=== PATIENT | male | born 1970 | race Hispanic/Latino ===

== ENCOUNTER 2017-07-26 11:00 | Inpatient (IN) | payer SELFPAY ==
--- NOTE | 2017-07-26 12:20 | RAD ---
4 VIEWS LEFT KNEE: Date: 07/26/17 HISTORY: Left knee pain and redness for 4 days. FINDINGS: There is no evidence of a fracture, dislocation, or other osseous abnormality. There is mild subcutan eous soft tissue swelling seen anterior to the knee. IMPRESSION: Subcutaneous soft tissue swelling without evidence of an acute osseous abnormality. POS: [facility]
[2017-07-26] MEDS ORDERED: cefTRIAXone\\ROCEPHIN 2 GM in Sodium Chloride 0.9% 100 ML IVPB ONE (12:30)
[2017-07-26 12:42] LABS: Band 10 % (5-11); Hematocrit 43.2 % (42.0-52.0); Macrocytosis SLIGHT = 6-15 cells (100X) (0-5/hpf); Mean Platelet Volume 7.2 fL (7.4-10.4); Neutrophil 56 % (42-75); Red Blood Cell (RBC) Count 3.89 mill/uL (4.70-6.10); White Blood Cell (WBC) Count 5.2 thou/uL (4.8-10.8)
[2017-07-26] MEDS ORDERED: Vancomycin HCl 1.5 GM in Sodium Chloride 0.9% 250 ML 300 ML IVPB ONE (12:45)
[2017-07-26 12:51] LABS: ALT (SGPT) 48 U/L (8-55); AST (SGOT) 89 U/L (5-34); Alkaline Phosphatase 240 U/L (40-150); Anion Gap 13 mmol/L (10-20); BUN (Urea Nitrogen) 4 mg/dL (8.9-20.6); Bilirubin, Total 4.7 mg/dL (0.2-1.2); Calc. Creatinine Clearance 0 mL/min (70-130); Calcium 8.5 mg/dL (7.8-10.44); Carbon Dioxide 25 mmol/L (22-29); Chloride 98 mmol/L (98-107); Estimated GFR-MDRD Greater than 90; Globulin 4.2 g/dL (2.4-3.5); Protein, Total 7.2 g/dL (6.0-8.3)
[2017-07-26] MEDS ORDERED: Dextrose 50% Abboject 50 ML SYRINGE SLOW IVP PRN (16:03)
[2017-07-26] MEDS ORDERED: Mag-Al 1200 mg/1200 mg/30 ML UDCUP PO PRN (16:03)
[2017-07-26] MEDS ORDERED: Loratadine 10 MG TAB PO PRN (16:03)
[2017-07-26] MEDS ORDERED: Ondansetron HCl/PF 4 MG/2 ML Vial IVP PRN ×2 (16:03)
[2017-07-26] MEDS ORDERED: Chloraseptic Spray 180 ml Bottle PO PRN (16:03)
[2017-07-26] MEDS ORDERED: HumaLOG 300 UNITS/3 ML VIAL SC PRN ×2 (16:03)
[2017-07-26] MEDS ORDERED: Eucerin (Mineral Oil/Petrolatum,White) 30 gm Jar TOP PRN (16:03)
[2017-07-26] MEDS ORDERED: Ondansetron ODT 4 MG TAB PO PRN (16:03)
[2017-07-26] MEDS ORDERED: Loperamide HCl 2 MG CAP PO PRN (16:03)
[2017-07-26] MEDS ORDERED: Ondansetron ODT 4 MG TAB SL PRN (16:03)
[2017-07-26] MEDS ORDERED: Senokot 8.6 MG TAB PO PRN (16:03)
[2017-07-26] MEDS ORDERED: hydrALAZINE 20 MG/ML VIAL SLOW IVP PRN (16:03)
[2017-07-26] MEDS ORDERED: Diabetic Tussin 200 MG/10 ML UDCUP PO PRN (16:03)
[2017-07-26] MEDS ORDERED: Acetaminophen 325 MG TAB PO PRN (16:03)
[2017-07-26] MEDS ORDERED: Dextrose 5% in Water 1,000 ML IV PRN (16:03)
[2017-07-26] MEDS ORDERED: Milk Of Magnesia 30 ML UDCUP PO PRN (16:03)
[2017-07-26] MEDS ORDERED: Sodium Chloride 0.65% Nasal 44 ML BOT EA NARE PRN (16:03)
[2017-07-26] MEDS ORDERED: Zolpidem Tartrate 5 MG TAB PO PRN (16:03)
[2017-07-26] MEDS ORDERED: Morphine PF 1 MG/ML SYR IVP PRN (16:19)
--- NOTE | 2017-07-26 16:49 | HP ---
PRIMARY CARE PHYSICIAN: [facility] Call Admission. REASON FOR ADMISSION: Sepsis, left patellar bursitis with cellulitis, new onset diabetes. HISTORY OF PRESENT ILLNESS: A 47-year-old male, who came to the emergency room for evaluati on of left knee pain. The patient reports that he is having left knee pain and redness for 4 days, h e noticed that redness started over the knee and subsequently redness also spread to lower extremity. The patient was having throbbing pain about 5/10 in intensity. He was having subjective fever. He denies any insect bite trauma. He never had this type of problem before. The patient's pain is gra dually getting worse that makes him difficult to walk and that is why he decided to come to the emerg ency room for evaluation. In the emergency room, the patient was found with a left patellar bursitis with cellulitis. The gregor ent also had hyperglycemia on routine testing as well as abnormal LFT. The patient denies any previo us history of diabetes, but he reports that he has to drink a lot of water and he has to go urination during night time as well. We are admitting this patient for left patellar bursitis with cellulitis and further evaluation of di abetes. ALLERGIES: No known drug allergies. CURRENT HOME MEDICATIONS: The patient is not taking any prescribed or non-prescribed medication. REVIEW OF SYSTEMS: The following complete review of systems was negative, unless otherwise mentioned in the HPI or below: Constitutional: Weight loss or gain, ability to conduct usual activities. Skin: Rash, itching. Eyes: Double vision, pain. ENT/Mouth: Nose bleeding, neck stiffness, pain, tenderness. Cardiovascular: Palpitations, dyspnea on exertion, orthopnea. Respiratory: Shortness of breath, wheezing, cough, hemoptysis, fever or night sweats. Gastrointestinal: Poor appetite, abdominal pain, heartburn, nausea, vomiting, constipation, or diarr hea. Genitourinary: Urgency, frequency, dysuria, nocturia. Musculoskeletal: Pain, swelling. Neurologic/Psychiatric: Anxiety, depression. Allergy/Immunologic: Skin rash, bleeding tendency. Please see my HPI for pertinent positives and negatives. All other review of systems reviewed and ne gative except as mentioned in the HPI. PAST MEDICAL HISTORY: Reviewed and negative. PAST SURGICAL HISTORY: Hernia repair. PAST PSYCHIATRIC HISTORY: Reviewed and negative. SOCIAL HISTORY: Patient drinks 12 beers on the weekend. He denies any smoking. He denies any other illicit drug abuse. FAMILY HISTORY: No strong family history of premature coronary artery disease, stroke or cancer. No family history of diabetes. EMERGENCY ROOM COURSE: Patient is given vancomycin and Rocephin. PHYSICAL EXAMINATION: VITAL SIGNS: On arrival, blood pressure 134/81, pulse 89, respiratory rate 18, temperature 98.3, sat uration 96% on room air, weight 106.5 kilograms. GENERAL: Patient is currently alert, awake, in no obvious acute distress. HEAD: Normocephalic, atraumatic. EYES: Pupils round, reactive to light. Extraocular muscles intact. ENT: Oropharynx within normal limits. Moist mucous membranes. No oral lesions. No pharyngeal eryt pola, no exudate. NECK: Supple. Range of motion is normal. No meningeal signs of irritation. LUNGS: Clear to auscultation without any rhonchi or rales. CARDIAC: S1 and S2 regular without any murmur. ABDOMEN: Obesity present. Bowel sounds present. Nontender, nondistended. No organomegaly, no mass , no suprapubic tenderness. BACK: Unremarkable, no CVA tenderness. EXTREMITIES: Upper extremity passive movement of all joints are normal. Lower extremities: Left kn ee is swollen, erythematous, tender, mild fluctuance noted, erythema also spreading distally as well as posterior aspect of the knee. Right lower extremity within normal limits. NEUROLOGIC: Nonfocal examination. The patient moves all 4 limbs. Plantar bilateral flexor. SKIN: No skin rash. HEMATOLOGIC: No lymphadenopathy. PSYCHIATRIC: Normal affect. SIGNIFICANT LABS: 1. CBC: WBC 5.2, hemoglobin 14.4, platelet 122 with bandemia. BMP: Sodium 133, potassium 3.4, chl oride 98, carbon dioxide 25, anion gap 13, BUN 4, creatinine 0.57, glucose 200, calcium 8.5. 2. LFT: Total bilirubin 4.7, AST 89, ALT 48, alkaline phosphatase 240, albumin 3.0. ASSESSMENT AND PLAN: 1. Sepsis due to left patellar bursitis with cellulitis. The patient is given vancomycin and Roceph in in the emergency room. The patient will have IV fluid and will follow up on culture result. 2. Left patellar bursitis with cellulitis. The patient has also fluctuance. He has underlying sept ic bursitis. The patient will need possible I&D and that is why we will consult orthopedic physician and will continue with broad spectrum antibiotic therapy with vancomycin and Rocephin. We will foll ow up on culture result. 3. Hyponatremia, hypokalemia, suspecting for beer potomania. We will replace potassium chloride 40 mEq p.o. one time dose. We will check magnesium and phosphorus level tomorrow. We will continue wit h IV fluid with NS with KCl and we will repeat BMP tomorrow. 4. Macrocytosis and thrombocytopenia likely related with his alcohol abuse. We will continue with f olic acid, vitamin B12 and thiamine therapy while in hospital. 5. Abnormal liver function tests. The patient has jaundice AST more than ALT and hypoalbuminemia, s uspecting from chronic liver disease from alcohol to rule out cirrhosis. We will check ultrasound ri ght upper quadrant and we will also check hepatitis profile. 6. New onset diabetes. The patient has hyperglycemia. Currently, we will check hemoglobin A1c. To kim, we will monitor Accu-Chek before meals and at bedtime and cover with insulin sliding scale. Diabetic diet education given. 7. Obesity with morbid obesity. Dietary education given, weight loss education given. 8. Alcohol abuse. The patient will be given folic acid, vitamin B12, and thiamine while in hospital . 9. Deep venous thrombosis prophylaxis. Lovenox 40 mg subcutaneously daily. 10. Gastrointestinal prophylaxis, Pepcid 20 mg p.o. b.i.d. 11. Code status: The patient is FULL CODE. Patient does not have any surrogate decision maker. Disposition plan based on clinical course. We are expecting patient's stay in hospital more than 2 m idnights. Plan of care discussed with the patient in detail.
[2017-07-26 17:03] VITALS: BMI 37.0
[2017-07-26] MEDS: NS 0.9% w/ 20 MEQ KCL 1,000 ML/1,000 ML BAG IV SCH (17:12)
[2017-07-26] MEDS: Famotidine 20 MG TAB PO SCH (20:23)
[2017-07-26] MEDS ORDERED: FLU VACC QS2017-18 36 mo. & older 0.5 ML SYRINGE IM ONE (21:00)
[2017-07-26] MEDS: Vancomycin HCl 1.5 GM in Sodium Chloride 0.9% 250 ML 300 ML IVPB SCH (21:49)
--- NOTE | 2017-07-27 00:20 | CON ---
DATE OF CONSULTATION: 07/26/2017 CHIEF COMPLAINT: Left knee pain. HISTORY OF PRESENT ILLNESS: Mr. Phelps is a 47-year-old male who has 4 days of left knee pain, swelling. Denies any specific injury. The patient works, doing yard work, his pain is elevated. Denies history of diabetes. Pain is rated currently between as high as 7-10. The patient has not been taking ibuprofen for pain relief. PAST MEDICAL HISTORY: None. PAST SURGICAL HISTORY: Hernia repair. ALLERGIES: No known drug allergies. MEDICATIONS: Ibuprofen for pain. SOCIAL HISTORY: Positive, drinks socially. Denies illicit drug use. No smoking. . REVIEW OF SYSTEMS: Otherwise, negative. PHYSICAL EXAMINATION: VITAL SIGNS: 134/81, 18, 98.3, 96%. GENERAL: Alert and oriented, no acute distress. EXTREMITIES: Left lower extremity, the patient has fluctuance noted in the anterior prepatellar bursa as well as some erythema down the lateral side of leg with prepatellar bursitis and possible cellulitis. The patient is on no effusion. He is able to flex and extend his knee, no pain with axial load. He is neurovascularly intact distally. He is able to flex and extend his toes. He has tenderness to palpation. There is warmth and erythema. LABORATORY AND X-RAY FINDINGS: White count is 5.2, glucose 200. X-rays showed fracture, soft tissue swelling anteriorly. The patient has received ceftriaxone and is currently on insulin to help control his diabetes. IMPRESSION: 1. Left lower extremity cellulitis, prepatellar bursitis. 2. Diabetes. ASSESSMENT AND PLAN: The patient will be planned to try to do an aspiration of fluctuant fluid and to see if I can sent off for culture, Gram stain. So, for further definitive antibiotic treatment, recommend warm packs and range of motion is tolerated. Compression as needed. The patient will be followed in- house for resolution of CRP and ESR ordered in the morning. SARTHAK
[2017-07-27] MEDS: NS 0.9% w/ 20 MEQ KCL 1,000 ML/1,000 ML BAG IV SCH ×3 (04:34→23:19)
[2017-07-27] MEDS: Vancomycin HCl 1.5 GM in Sodium Chloride 0.9% 250 ML 300 ML IVPB SCH (05:15)
[2017-07-27 05:50] LABS: #Eosinphils 0.1 thou/uL (0.0-0.7); #Lymphocytes 0.7 thou/uL (1.20-3.40); #Monocytes 0.6 thou/uL (0.11-0.59); #Neutrophils 3.2 thou/uL (1.40-6.50); %Basophils 0.4 % (0.0-1.0); %Eosinophils 2.6 % (0.0-10.0); %Lymphocytes 15.2 % (21.0-51.0); %Monocytes 12.9 % (0.0-10.0); Hematocrit 42.4 % (42.0-52.0); Mean Platelet Volume 7.2 fL (7.4-10.4); White Blood Cell (WBC) Count 4.6 thou/uL (4.8-10.8)
[2017-07-27 05:51] LABS: Hemoglobin A1c 6.8 % (4.0-6.0)
[2017-07-27 06:22] LABS: ALT (SGPT) 46 U/L (8-55); AST (SGOT) 85 U/L (5-34); Alkaline Phosphatase 181 U/L (40-150); Anion Gap 13 mmol/L (10-20); BUN (Urea Nitrogen) 6 mg/dL (8.9-20.6); Bilirubin, Total 6.1 mg/dL (0.2-1.2); Calc. Creatinine Clearance 286 mL/min (70-130); Calcium 8.5 mg/dL (7.8-10.44); Carbon Dioxide 24 mmol/L (22-29); Chloride 102 mmol/L (98-107); Estimated GFR-MDRD Greater than 90; Globulin 4.1 g/dL (2.4-3.5); Magnesium 1.3 mg/dL (1.6-2.6); Phosphorus 2.6 mg/dL (2.3-4.7)
--- NOTE | 2017-07-27 07:59 | OP ---
DATE OF PROCEDURE: 07/26/2017 PREPROCEDURE DIAGNOSES: Left prepatellar bursitis with cellulitis. POSTPROCEDURE DIAGNOSES: Left prepatellar bursitis with cellulitis. PROCEDURE PERFORMED: Needle aspiration, prepatellar bursal fluid. STAFF: Yarde Wells M.D. ANESTHESIA: None. A 5 mL of dark chocolate-colored fluid collected from prepatellar bursa, placed in a culture tube as well as a purple-top. COMPLICATIONS: None. HISTORY OF PRESENT ILLNESS: Mr. Phelps is a 47-year-old male with left knee pain for 4 days, had effusion, swelling, new diagnosis of diabetes, was counseled by Medicine for evaluation. PROCEDURE NOTE: After the patient was cleaned with Betadine and chlorhexidine prep, sterile gauze wa s applied. The patient has been consented for aspiration of his left knee. The patient had fluid as pirated. After the patient consented, we placed 18 gauge needle on the patient's prepatellar bursa, was able to pull off 5 mL of reddish chocolate-colored purulent material and the fluid was placed int o a purple-top as well as for culture tube, will be sent for culture and Gram stain for more specific antibiotic treatment, the patient had a dressing applied. The patient will begin warm compresses as needed. The patient will receive antibiotics for Internal Medicine. The patient will be followed in-house. His diabetes will be controlled by Medicine who wi ll be following him for appropriate antibiotic control. Patient hopefully will not require any furth er I&Ds, but will be treated medically.
[2017-07-27] MEDS ORDERED: Magnesium Sulfate 4 GM, Admixture Fee 1 EACH in Sodium Chloride 0.9% 250 ML 250 ML IVPB SCH (08:15)
[2017-07-27] MEDS: Saccharomyces boulardii 250 MG CAP PO SCH (08:21)
[2017-07-27] MEDS: Folic Acid 1 MG TAB PO SCH (08:22)
[2017-07-27] MEDS: Cyanocobalamin (Vitamin B-12) 1,000 MCG TAB PO SCH (08:22)
[2017-07-27] MEDS: Famotidine 20 MG TAB PO SCH ×2 (08:22→20:06)
[2017-07-27] MEDS: Multivitamin W/ Minerals 1 TAB PO SCH (08:24)
[2017-07-27] MEDS: Enoxaparin Sodium 40 MG/0.4 ML SYRINGE SC SCH (08:26)
--- NOTE | 2017-07-27 09:27 | ULT ---
RIGHT UPPER QUADRANT ULTRASOUND: DATE: 07/27/17. HISTORY: Abnormal liver function tests. COMPARISON: 03/10/11. FINDINGS: The liver demonstrates coarsened echotexture and increased echogenicity likely reflective of diffuse fatty infiltration. This does limit evaluation of the hepatic parenchyma; although, no discrete hepa tic mass is present. A few echogenic foci are seen in the gallbladder lumen demonstrating posterior shadowing consistent w ith gallbladder calculi. Gallbladder wall is borderline thick and measures 0.39 cm, but the gallblad deepika is also incompletely distended. There is no pericholecystic fluid identified. The extrahepatic common duct measures 0.8 cm, which is dilated. No intrahepatic biliary ductal dilat ation is visualized. Pancreas is mostly obscured by bowel gas. Limited visualized portions of the pancreas and right kidn ey demonstrate a normal sonographic appearance. The right kidney measures 13.9 cm in length. Doppler evaluation of the main portal vein demonstrates a dampened velocity involving the waveform of the main portal vein. This is nonspecific. IMPRESSION: 1. Fatty infiltration of the liver. 2. Dilatation of the extrahepatic common duct of uncertain etiology. No intrahepatic biliary ductal dilatation is appreciated. 3. Cholelithiasis with nonmobile gallbladder calculi in the neck of the gallbladder. Gallbladder wa ll is also borderline thickened which can be seen with cholecystitis, but there is no pericholecystic fluid identified. In addition, the presumed thickening of the gallbladder wall could be related to incomplete distention of the gallbladder. 4. Dampened waveform of the main portal vein. POS: [facility]
--- NOTE | 2017-07-27 12:22 | PDOC.PN ---
- Subjective Encounter Start Date: 07/27/17 Encounter Start Time: 10:10 Patient seen and examined. No overnight events, has left knee pain, warmth - Objective Resuscitation Status: Resuscitation Status FULL:Full Resuscitation MAR Reviewed: Yes Vital Signs & Weight: Vital Signs (12 hours) Temp Pulse Resp BP BP Pulse Ox 07/27/17 12:00 98.3 F 82 20 118/71 97 07/27/17 08:00 98.5 F 91 22 H 137/84 97 07/27/17 05:28 95 07/27/17 04:00 99.2 F 73 20 119/69 97 I&O: 07/26/17 07/27/17 07/28/17 06:59 06:59 06:59 Intake Total 1298 Balance 1298 Result Diagrams: 07/27/17 05:27 07/27/17 05:27 Additional Labs: Accuchecks 07/26/17 07/26/17 20:19 16:16 POC Glucose 122 H 169 H Phys Exam - Physical Examination Constitutional: NAD HEENT: PERRLA, moist MMs, sclera anicteric Neck: no JVD, supple Respiratory: no wheezing, no rales, no rhonchi Cardiovascular: RRR, no significant murmur, no rub Gastrointestinal: soft, non-tender, no distention, positive bowel sounds obesity+ Musculoskeletal: pulses present left knee bursitis, cellulitis Neurological: non-focal, normal sensation, moves all 4 limbs Lymphatic: no nodes Psychiatric: normal affect, A&O x 3 Skin: no rash, normal turgor Dx/Plan (1) Abnormal LFTs Code(s): R79.89 - OTHER SPECIFIED ABNORMAL FINDINGS OF BLOOD CHEMISTRY Status : Acute (2) Hypokalemia Code(s): E87.6 - HYPOKALEMIA Status: Acute (3) Hypomagnesemia Code(s): E83.42 - HYPOMAGNESEMIA Status: Acute (4) New onset type 2 diabetes mellitus Code(s): E11.9 - TYPE 2 DIABETES MELLITUS WITHOUT COMPLICATIONS Status: Acute (5) Sepsis Code(s): A41.9 - SEPSIS, UNSPECIFIED ORGANISM Status: Acute (6) Septic prepatellar bursitis of left knee Code(s): M71.162 - OTHER INFECTIVE BURSITIS, LEFT KNEE Status: Acute (7) Alcohol abuse Code(s): F10.10 - ALCOHOL ABUSE, UNCOMPLICATED Status: Chronic (8) Macrocytic anemia Code(s): D53.9 - NUTRITIONAL ANEMIA, UNSPECIFIED Status: Chronic (9) Obesity (BMI 30-39.9) Code(s): E66.9 - OBESITY, UNSPECIFIED Status: Chronic (10) Thrombocytopenia Code(s): D69.6 - THROMBOCYTOPENIA, UNSPECIFIED Status: Chronic - Plan cont current plan of care, continue antibiotics * continue rocephin and vancomycin today * on discharge will change to keflex * add metformin * replace magnesium * spoke with ortho, no plan for I & D. * consult dietitian * medication reviewed as below * symptomatic treatment * pain control Review of Systems - Review of Systems Constitutional: negative: Fever, Chills, Sweats, Weakness, Malaise, Other ENT: negative: Ear Pain, Ear Discharge, Nose Pain, Nose Discharge, Nose Congestion, Mouth Pain, Mouth Swelling, Throat Pain, Throat Swelling, Other Respiratory: negative: Cough, Dry, Shortness of Breath, Hemoptysis, SOB with Excertion, Pleuritic Pain, Sputum, Wheezing Cardiovascular: negative: Chest Pain, Palpitations, Orthopnea, Paroxysmal Noc. Dyspnea, Edema, Light Headedness, Other Gastrointestinal: negative: Nausea, Vomiting, Abdominal Pain, Diarrhea, Constipation, Melena, Hematochezia, Other Genitourinary: negative: Dysuria, Frequency, Incontinence, Hematuria, Retention , Other Musculoskeletal: Leg Pain. negative: Neck Pain, Shoulder Pain, Arm Pain, Back Pain, Hand Pain, Foot Pain, Other Skin: negative: Rash, Lesions, Justyn, Bruising, Other - Medications/Allergies Allergies/Adverse Reactions: Allergies Allergy/AdvReac Type Severity Reaction Status Date / Time No Known Allergies Allergy Verified 07/26/17 17:11 Medications: Current Medications Acetaminophen (Tylenol) 650 mg PO Q4H PRN PRN Reason: Headache/Fever or Pain Hydrocodone Bitart/Acetaminophen ([place] 5/325) 1 tab PO Q4H PRN PRN Reason: Moderate Pain (4-6) Al Hydroxide/Mg Hydroxide (Maalox) 30 ml PO Q6H PRN PRN Reason: Heartburn or Indigestion Cyanocobalamin (Vitamin B-12) 1,000 mcg PO DAILY [facility] Last Admin: 07/27/17 08:22 Dose: 1,000 mcg Dextrose/Water (Dextrose 50%) 25 gm SLOW IVP PRN PRN PRN Reason: Hypoglycemia Enoxaparin Sodium (Lovenox) 40 mg SC 0900 [facility] Last Admin: 07/27/17 08:26 Dose: Not Given Famotidine (Pepcid) 20 mg PO BID [facility] Last Admin: 07/27/17 08:22 Dose: 20 mg Folic Acid (Folvite) 1 mg PO DAILY [facility] Last Admin: 07/27/17 08:22 Dose: 1 mg Glucagon (Glucagon) 1 mg IM PRN PRN PRN Reason: Hypoglycemia Guaifenesin (Robitussin Sf) 200 mg PO Q4H PRN PRN Reason: Cough Hydralazine HCl (Apresoline) 10 mg SLOW IVP Q4H PRN PRN Reason: Systolic BP > 180 Ceftriaxone Sodium 2 gm/ (Sodium Chloride) 100 mls @ 200 mls/hr IVPB Q24HR@ 1300 [facility] Dextrose/Water (D5w) 1,000 mls @ 0 mls/hr IV .Q0M PRN; As Directed PRN Reason: Hypoglycemia Potassium Chloride/Sodium Chloride (Ns 0.9% W/ 20 Meq Kcl) 1,000 ml in 1,000 mls @ 100 mls/hr IV .Q10H [facility] Last Admin: 07/27/17 08:26 Dose: 1,000 mls Vancomycin HCl 1.5 gm/ Sodium (Chloride) 300 mls @ 200 mls/hr IVPB Q8HR [facility] Last Admin: 07/27/17 05:15 Dose: 300 mls Insulin Human Lispro (Humalog) 0 units SC .MODERATE SLIDING SC PRN PRN Reason: Moderate Correctional Scale Insulin Human Lispro (Humalog) 0 units SC .BEDTIME SLIDING SC PRN PRN Reason: Bedtime Correctional Scale Iron/Minerals/Multivitamins (Theragran M) 1 tab PO DAILY [facility] Last Admin: 07/27/17 08:24 Dose: Not Given Ketorolac Tromethamine (Toradol) 15 mg IVP Q6H PRN PRN Reason: Pain Stop: 07/31/17 16:04 Loperamide HCl (Imodium) 2 mg PO PRN PRN PRN Reason: Diarrhea/Loose Stools Loratadine (Claritin) 10 mg PO DAILYPRN PRN PRN Reason: Sinus Symptoms Magnesium Hydroxide (Milk Of Magnesium) 30 ml PO DAILYPRN PRN PRN Reason: Constipation Metformin HCl (Glucophage) 500 mg PO BID-[facility] Mineral Oil/White Petrolatum (Eucerin Cream) 0 gm TOP BIDPRN PRN PRN Reason: Dry Skin Miscellaneous Medication (Pharmacy To Dose) 1 each IVPB PRN PRN PRN Reason: Pharmacy to dose Morphine Sulfate (Duramorph) 2 mg IVP Q4H PRN PRN Reason: Severe Pain (7-10) Ondansetron HCl (Zofran Odt) 4 mg PO Q6H PRN PRN Reason: Nausea/Vomiting Ondansetron HCl (Zofran) 4 mg IVP Q6H PRN PRN Reason: Nausea/Vomiting Phenol (Chloraseptic [place] 180 Ml Bot) 0 ml PO PRN PRN PRN Reason: Sore Throat Saccharomyces Boulardii (Florastor) 250 mg PO DAILY [facility] Last Admin: 07/27/17 08:21 Dose: 250 mg Senna (Senokot) 2 tab PO HSPRN PRN PRN Reason: Constipation Sodium Chloride (Charles Mix Nasal [place] 0.65%) 0 ml EA NARE QIDPRN PRN PRN Reason: Nasal Congestion Sodium Chloride (Flush - Normal Saline) 10 ml IVF Q12HR [facility] Last Admin: 07/27/17 08:31 Dose: Not Given Sodium Chloride (Flush - Normal Saline) 10 ml IVF PRN PRN PRN Reason: Saline Flush Thiamine HCl (Thiamine) 100 mg PO DAILY [facility] Last Admin: 07/27/17 08:22 Dose: 100 mg Zolpidem Tartrate (Ambien) 5 mg PO HSPRN PRN PRN Reason: Insomnia
[2017-07-27] MEDS: cefTRIAXone\\ROCEPHIN 2 GM in Sodium Chloride 0.9% 100 ML IVPB SCH (12:38)
[2017-07-27 13:30] LABS: Vancomycin, Trough 6.2 ug/mL
[2017-07-27] MEDS: Ketorolac Tromethamine 30 MG/ML VIAL IVP PRN (15:32)
[2017-07-27] MEDS: HYDROcodone/Acetaminophen 5/325 mg Tablet PO PRN (15:34)
[2017-07-27] MEDS: metFORMIN 500 MG TAB PO SCH (17:31)
[2017-07-27] MEDS ORDERED: Lorazepam 1 MG TAB PO PRN (17:34)
--- NOTE | 2017-07-27 18:25 | PRG ---
DATE OF SERVICE: 07/27/2017 HISTORY OF PRESENT ILLNESS: Mr. Phelps is a 47-year-old male who presented with left prepatellar bursitis with a new diagnosis of diabetes. The patient had an aspiration yesterday of a purulent material which grew back group B strep. The patient is currently resting in bed comfortable. PHYSICAL EXAMINATION: VITAL SIGNS: The patient is afebrile. GENERAL: Alert and oriented, in no acute distress. MUSCULOSKELETAL: Full range of motion of the knee. No pain with axial load, improved pain, decreased erythema, neurovascularly intact distally. LABORATORY AND X-RAY FINDINGS: The patient has a white blood cell 4.6, CRP 6.6 , ESR 61. The patient has positive group B strep. ASSESSMENT AND PLAN: The patient will be placed on p.o. antibiotics like for about 10-14 days per Sound. The patient will be weightbearing as tolerated, use warm compresses, Tylenol, ibuprofen for pain. The patient will follow up with me in 2 weeks for a final check to ensure that he has a resolution of his prepatellar bursitis. SARTHAK
[2017-07-28 06:24] LABS: #Eosinphils 0.1 thou/uL (0.0-0.7); #Lymphocytes 0.7 thou/uL (1.20-3.40); #Monocytes 0.6 thou/uL (0.11-0.59); #Neutrophils 2.8 thou/uL (1.40-6.50); %Basophils 0.7 % (0.0-1.0); %Eosinophils 3.4 % (0.0-10.0); %Lymphocytes 15.3 % (21.0-51.0); %Monocytes 14.9 % (0.0-10.0); Hematocrit 41.9 % (42.0-52.0); Mean Platelet Volume 7.3 fL (7.4-10.4); Red Blood Cell (RBC) Count 3.75 mill/uL (4.70-6.10); White Blood Cell (WBC) Count 4.3 thou/uL (4.8-10.8)
[2017-07-28 06:40] LABS: ALT (SGPT) 44 U/L (8-55); AST (SGOT) 82 U/L (5-34); Alkaline Phosphatase 170 U/L (40-150); Anion Gap 9 mmol/L (10-20); BUN (Urea Nitrogen) 7 mg/dL (8.9-20.6); Bilirubin, Total 4.7 mg/dL (0.2-1.2); Calc. Creatinine Clearance 253 mL/min (70-130); Calcium 8.2 mg/dL (7.8-10.44); Carbon Dioxide 26 mmol/L (22-29); Chloride 105 mmol/L (98-107); Estimated GFR-MDRD Greater than 90; Magnesium 1.5 mg/dL (1.6-2.6); Protein, Total 6.7 g/dL (6.0-8.3)
[2017-07-28 07:49] LABS: Vancomycin, Trough 26.4 ug/mL
[2017-07-28] MEDS: NS 0.9% w/ 20 MEQ KCL 1,000 ML/1,000 ML BAG IV SCH ×2 (08:39→18:34)
[2017-07-28] MEDS: Saccharomyces boulardii 250 MG CAP PO SCH (08:40)
[2017-07-28] MEDS: Folic Acid 1 MG TAB PO SCH (08:41)
[2017-07-28] MEDS: metFORMIN 500 MG TAB PO SCH ×2 (08:41→16:19)
[2017-07-28] MEDS: Multivitamin W/ Minerals 1 TAB PO SCH (08:41)
[2017-07-28] MEDS: Famotidine 20 MG TAB PO SCH ×2 (08:41→22:20)
[2017-07-28] MEDS: Cyanocobalamin (Vitamin B-12) 1,000 MCG TAB PO SCH (08:43)
[2017-07-28] MEDS: Enoxaparin Sodium 40 MG/0.4 ML SYRINGE SC SCH (08:44)
[2017-07-28] MEDS: HYDROcodone/Acetaminophen 5/325 mg Tablet PO PRN ×3 (08:52→22:24)
[2017-07-28] MEDS: Ketorolac Tromethamine 30 MG/ML VIAL IVP PRN (08:53)
--- NOTE | 2017-07-28 12:48 | PDOC.PN ---
- Subjective Encounter Start Date: 07/28/17 Encounter Start Time: 09:30 Patient seen and examined. No new complaints. No overnight events - Objective Resuscitation Status: Resuscitation Status FULL:Full Resuscitation MAR Reviewed: Yes Vital Signs & Weight: Vital Signs (12 hours) Temp Pulse Resp BP BP BP Pulse Ox 07/28/17 08:00 98.8 F 75 20 126/77 97 07/28/17 04:42 133/81 07/28/17 04:00 98.5 F 80 20 133/81 97 07/28/17 01:00 107/66 I&O: 07/27/17 07/28/17 07/29/17 06:59 06:59 06:59 Intake Total 8 2049 Balance 1297 2049 Result Diagrams: 07/28/17 05:56 07/28/17 05:57 Additional Labs: Accuchecks 07/27/17 07/27/17 07/27/17 20:19 16:28 12:06 POC Glucose 167 H 140 H 142 H Phys Exam - Physical Examination Constitutional: NAD HEENT: PERRLA, moist MMs, sclera anicteric Neck: no JVD, supple Respiratory: no wheezing, no rales, no rhonchi Cardiovascular: RRR, no significant murmur, no rub Gastrointestinal: soft, non-tender, no distention, positive bowel sounds Musculoskeletal: no edema, pulses present left knee swelling reduced Neurological: non-focal, normal sensation, moves all 4 limbs Lymphatic: no nodes Psychiatric: normal affect, A&O x 3 Skin: no rash, normal turgor Dx/Plan (1) Abnormal LFTs Code(s): R79.89 - OTHER SPECIFIED ABNORMAL FINDINGS OF BLOOD CHEMISTRY Status : Acute (2) Hypokalemia Code(s): E87.6 - HYPOKALEMIA Status: Acute (3) Hypomagnesemia Code(s): E83.42 - HYPOMAGNESEMIA Status: Acute (4) New onset type 2 diabetes mellitus Code(s): E11.9 - TYPE 2 DIABETES MELLITUS WITHOUT COMPLICATIONS Status: Acute (5) Sepsis Code(s): A41.9 - SEPSIS, UNSPECIFIED ORGANISM Status: Acute (6) Septic prepatellar bursitis of left knee Code(s): M71.162 - OTHER INFECTIVE BURSITIS, LEFT KNEE Status: Acute (7) Alcohol abuse Code(s): F10.10 - ALCOHOL ABUSE, UNCOMPLICATED Status: Chronic (8) Macrocytic anemia Code(s): D53.9 - NUTRITIONAL ANEMIA, UNSPECIFIED Status: Chronic (9) Obesity (BMI 30-39.9) Code(s): E66.9 - OBESITY, UNSPECIFIED Status: Chronic (10) Thrombocytopenia Code(s): D69.6 - THROMBOCYTOPENIA, UNSPECIFIED Status: Chronic - Plan cont current plan of care, continue antibiotics * tomorrow will change to oral keflex * continue iv rocephin * DC vancomcyin * medication reviewed as below * symptomatic treatment * pain controlled. Review of Systems - Review of Systems ENT: negative: Ear Pain, Ear Discharge, Nose Pain, Nose Discharge, Nose Congestion, Mouth Pain, Mouth Swelling, Throat Pain, Throat Swelling, Other Respiratory: negative: Cough, Dry, Shortness of Breath, Hemoptysis, SOB with Excertion, Pleuritic Pain, Sputum, Wheezing Cardiovascular: negative: Chest Pain, Palpitations, Orthopnea, Paroxysmal Noc. Dyspnea, Edema, Light Headedness, Other Gastrointestinal: negative: Nausea, Vomiting, Abdominal Pain, Diarrhea, Constipation, Melena, Hematochezia, Other Genitourinary: negative: Dysuria, Frequency, Incontinence, Hematuria, Retention , Other Musculoskeletal: negative: Neck Pain, Shoulder Pain, Arm Pain, Back Pain, Hand Pain, Leg Pain, Foot Pain, Other Skin: negative: Rash, Lesions, Justyn, Bruising, Other - Medications/Allergies Allergies/Adverse Reactions: Allergies Allergy/AdvReac Type Severity Reaction Status Date / Time No Known Allergies Allergy Verified 07/26/17 17:11 Medications: Current Medications Acetaminophen (Tylenol) 650 mg PO Q4H PRN PRN Reason: Headache/Fever or Pain Hydrocodone Bitart/Acetaminophen ([place] 5/325) 1 tab PO Q4H PRN PRN Reason: Moderate Pain (4-6) Last Admin: 07/28/17 08:52 Dose: 1 tab Al Hydroxide/Mg Hydroxide (Maalox) 30 ml PO Q6H PRN PRN Reason: Heartburn or Indigestion Cyanocobalamin (Vitamin B-12) 1,000 mcg PO DAILY [facility] Last Admin: 07/28/17 08:43 Dose: 1,000 mcg Dextrose/Water (Dextrose 50%) 25 gm SLOW IVP PRN PRN PRN Reason: Hypoglycemia Enoxaparin Sodium (Lovenox) 40 mg SC 0900 [facility] Last Admin: 07/28/17 08:44 Dose: Not Given Famotidine (Pepcid) 20 mg PO BID [facility] Last Admin: 07/28/17 08:41 Dose: 20 mg Folic Acid (Folvite) 1 mg PO DAILY [facility] Last Admin: 07/28/17 08:41 Dose: 1 mg Glucagon (Glucagon) 1 mg IM PRN PRN PRN Reason: Hypoglycemia Guaifenesin (Robitussin Sf) 200 mg PO Q4H PRN PRN Reason: Cough Hydralazine HCl (Apresoline) 10 mg SLOW IVP Q4H PRN PRN Reason: Systolic BP > 180 Ceftriaxone Sodium 2 gm/ (Sodium Chloride) 100 mls @ 200 mls/hr IVPB Q24HR@ 1300 [facility] Last Admin: 07/27/17 12:38 Dose: 100 mls Dextrose/Water (D5w) 1,000 mls @ 0 mls/hr IV .Q0M PRN; As Directed PRN Reason: Hypoglycemia Potassium Chloride/Sodium Chloride (Ns 0.9% W/ 20 Meq Kcl) 1,000 ml in 1,000 mls @ 100 mls/hr IV .Q10H [facility] Last Admin: 07/28/17 08:39 Dose: 1,000 mls Insulin Human Lispro (Humalog) 0 units SC .MODERATE SLIDING SC PRN PRN Reason: Moderate Correctional Scale Insulin Human Lispro (Humalog) 0 units SC .BEDTIME SLIDING SC PRN PRN Reason: Bedtime Correctional Scale Iron/Minerals/Multivitamins (Theragran M) 1 tab PO DAILY [facility] Last Admin: 07/28/17 08:41 Dose: 1 tab Ketorolac Tromethamine (Toradol) 15 mg IVP Q6H PRN PRN Reason: Pain Stop: 07/31/17 16:04 Last Admin: 07/28/17 08:53 Dose: 15 mg Loperamide HCl (Imodium) 2 mg PO PRN PRN PRN Reason: Diarrhea/Loose Stools Loratadine (Claritin) 10 mg PO DAILYPRN PRN PRN Reason: Sinus Symptoms Lorazepam (Ativan) 1 mg PO Q4H PRN PRN Reason: Anxiety Magnesium Hydroxide (Milk Of Magnesium) 30 ml PO DAILYPRN PRN PRN Reason: Constipation Metformin HCl (Glucophage) 500 mg PO BID-[facility] Last Admin: 07/28/17 08:41 Dose: 500 mg Mineral Oil/White Petrolatum (Eucerin Cream) 0 gm TOP BIDPRN PRN PRN Reason: Dry Skin Morphine Sulfate (Duramorph) 2 mg IVP Q4H PRN PRN Reason: Severe Pain (7-10) Ondansetron HCl (Zofran Odt) 4 mg PO Q6H PRN PRN Reason: Nausea/Vomiting Ondansetron HCl (Zofran) 4 mg IVP Q6H PRN PRN Reason: Nausea/Vomiting Phenol (Chloraseptic [place] 180 Ml Bot) 0 ml PO PRN PRN PRN Reason: Sore Throat Saccharomyces Boulardii (Florastor) 250 mg PO DAILY [facility] Last Admin: 07/28/17 08:40 Dose: 250 mg Senna (Senokot) 2 tab PO HSPRN PRN PRN Reason: Constipation Sodium Chloride ([place] Nasal [place] 0.65%) 0 ml EA NARE QIDPRN PRN PRN Reason: Nasal Congestion Sodium Chloride (Flush - Normal Saline) 10 ml IVF Q12HR [facility] Last Admin: 07/28/17 08:45 Dose: Not Given Sodium Chloride (Flush - Normal Saline) 10 ml IVF PRN PRN PRN Reason: Saline Flush Thiamine HCl (Thiamine) 100 mg PO DAILY [facility] Last Admin: 07/28/17 08:41 Dose: 100 mg Zolpidem Tartrate (Ambien) 5 mg PO HSPRN PRN PRN Reason: Insomnia
[2017-07-28] MEDS: cefTRIAXone\\ROCEPHIN 2 GM in Sodium Chloride 0.9% 100 ML IVPB SCH (14:00)
[2017-07-29] MEDS: NS 0.9% w/ 20 MEQ KCL 1,000 ML/1,000 ML BAG IV SCH (05:20)
[2017-07-29] MEDS: Saccharomyces boulardii 250 MG CAP PO SCH (08:29)
[2017-07-29] MEDS: Folic Acid 1 MG TAB PO SCH (08:29)
[2017-07-29] MEDS: metFORMIN 500 MG TAB PO SCH (08:29)
[2017-07-29] MEDS: Multivitamin W/ Minerals 1 TAB PO SCH (08:29)
[2017-07-29] MEDS: Famotidine 20 MG TAB PO SCH (08:29)
[2017-07-29] MEDS: Cyanocobalamin (Vitamin B-12) 1,000 MCG TAB PO SCH (08:30)
[2017-07-29] MEDS: Enoxaparin Sodium 40 MG/0.4 ML SYRINGE SC SCH (08:31)
[2017-07-29 11:09] VITALS: BP 132/87; TEMP 98.6
--- NOTE | 2017-07-29 14:10 | DIS ---
DATE OF ADMISSION: 07/26/2017 DATE OF DISCHARGE: 07/29/2017 PRIMARY CARE PHYSICIAN: [facility] call admission. PRIMARY DISCHARGE DIAGNOSES: 1. Septic prepatellar bursitis of left knee, status post needle aspiration. 2. Sepsis. 3. New onset diabetes type 2. 4. Hypokalemia, hypomagnesemia, corrected. 5. Abnormal liver function tests due to alcohol abuse, thrombocytopenia due to alcoholism, macrocyti c anemia due to alcoholism. SECONDARY DISCHARGE DIAGNOSES: Obesity with BMI 37, alcohol abuse. PRIMARY PROCEDURE/OPERATION: Needle aspiration of septic bursitis by Dr. Wells. RADIOLOGICAL INVESTIGATION: Knee x-ray showed subcutaneous soft tissue swelling, abdominal ultrasoun d showed fatty liver. SIGNIFICANT LABS: WBC 4.3, hemoglobin 14.1, platelets 137. Sodium 137, potassium 3.5, BUN 7, creat inine 0.53, calcium 8.3, AST 82, ALT 44, alkaline phosphatase 170, albumin 2.7, hemoglobin A1c 6.8. Hepatitis profile negative and knee aspiration grew Streptococcus. Blood culture negative. DISCHARGE MEDICATIONS: Tylenol #3 one to two tablets q.6 hourly p.r.n. for pain, Keflex 500 mg p.o. t.i.d. for 15 days, vitamin B12 1000 mcg p.o. daily, Pepcid 20 mg p.o. b.i.d., folic acid 1 mg p.o. d aily, metformin 500 mg p.o. b.i.d., multivitamin 1 tablet p.o. daily, Florastor 250 mg p.o. daily for 15 days, thiamine 100 mg p.o. daily. CONTRAINDICATIONS: None. CODE STATUS: FULL CODE. INPATIENT CONSULTANTS: Dr. Yared Wells was consulted while in hospital. TEST RESULTS PENDING ON DISCHARGE: None. ALLERGIES: No known drug allergy. DISCHARGE PLAN: Post hospital, the patient will follow up with Dr. Wells as instructed. HOSPITAL COURSE: A 47-year-old male with the above mentioned medical problems, who was admitted by machelle marquez on 07/26/2017. The patient was admitted for left knee swelling and erythema as well as lower extre mity pain. The patient was diagnosed with a left patellar bursitis with surrounding cellulitis and s epsis. He was also found with new diabetes. During this admission, we treated him with IV vancomyci n and Rocephin. He was having fluctuance and that is why Dr. Wells was consulted and he did needle aspiration. Subsequently, culture grew Streptococcus based on culture and sensitivity result. We d iscontinued vancomycin and continued with Rocephin. On discharge, we changed to Keflex. While in [facility], he had little bit of blister formation over knee without any erythema. Dr. Wells cleared h im for discharge today. This patient has alcoholism history and because of that, he has abnormal LFTs, leukopenia and macrocy tosis. We provided counseling to avoid alcohol abuse. The patient is seen and examined at bedside today. PHYSICAL EXAMINATION: VITAL SIGNS: Currently, temperature 98.6, pulse 79, respiratory rate 16, saturation 97%, blood press ure 132/87. Weight 223 pounds. GENERAL: The patient is currently alert, awake, no obvious acute distress. HEENT: Head normocephalic, atraumatic. LUNGS: Clear. CARDIAC: S1, S2 regular. No murmur, no gallop, no rub. ABDOMEN: Soft and benign. EXTREMITIES: No edema. NEUROLOGIC: Nonfocal examination. The patient's left knee is significantly better. No erythema not ed, only mildly tenderness noted and pain is controlled with pain medication. All new medication prescription sent to his pharmacy. Total time spent on discharge day more than 30 minutes.
== END 2017-07-29 13:00 | disposition home or self-care (01) | DRG 872 ==
LOC: ERS 11:00 → T4-A 16:01
PROVIDERS: ADMIT Internal Medicine; ATTEND Internal Medicine
PROC: 0S9D3ZX Drainage of Left Knee Joint, Percutaneous Approach, Diagnostic (ICD-10-PCS; principal; 2017-07-26)
DX: A41.9 Sepsis, unspecified organism (principal); D69.59 Other secondary thrombocytopenia; E87.1 Hypo-osmolality and hyponatremia; E83.42 Hypomagnesemia; E66.01 Morbid (severe) obesity due to excess calories; L03.116 Cellulitis of left lower limb; E11.9 Type 2 diabetes mellitus without complications; D64.9 Anemia, unspecified; E87.6 Hypokalemia; F10.20 Alcohol dependence, uncomplicated; M71.162 Other infective bursitis, left knee; B95.5 Unspecified streptococcus as the cause of diseases classified elsewhere; Z68.37 Body mass index [BMI] 37.0-37.9, adult
CPT/HCPCS: 36415; 36416; 76705; 80053; 80074; 80202; 83036; 83735; 84100; 85025; 85652; 86140; 87040; 87070; 87077; 87186; 87205; 96365; 96366; 96367; A4216; J0696; J1650; J1885; J3370; J3475; J7050

== ENCOUNTER 2020-03-12 11:28 | Emergency (ER) | payer SELFPAY ==
--- NOTE | 2020-03-12 13:45 | RAD ---
CHEST ONE VIEW PORTABLE: 03/12/20 HISTORY: Injury from trauma. Abdominal pain. FINDINGS: Heart size is within normal limits. The lungs are clear. No pneumothorax, pleural effusion, or other acute process. IMPRESSION: No significant acute intrathoracic disease. POS: RRE
== END 2020-03-12 13:56 | disposition home or self-care (01) ==
LOC: ERS 11:28
DX: S20.212A Contusion of left front wall of thorax, initial encounter (principal); E11.9 Type 2 diabetes mellitus without complications; X58.XXXA Exposure to other specified factors, initial encounter
CPT/HCPCS: 71045

== ENCOUNTER 2020-09-21 21:05 | Emergency (ER) | payer MEDICAID, SELFPAY ==
[~2020-09-21 21:05] MED LIST: Iopamidol-370 76% 500 ML 1 ML ONE
[2020-09-21 22:08] LABS: Bilirubin Negative (Negative); Blood, Urine Negative (Negative); Clarity Clear (Clear); Glucose, Urine (Dipstick) Greater than 1000 mg/dL (Negative); Ketone, Urine Negative (Negative); Leukocyte Negative Leu/uL (Negative); Nitrite Negative (Negative); Protein, Urine (Dipstick) Negative (Neg-Trace); Specific Gravity, Urine 1.011 (1.002-1.036); Urobilinogen 3 mg/dL (Less than 2); pH, Urine 6.5 (5.0-9.0)
[2020-09-21 22:20] LABS: Amphetamine Not Detected (NotDetected); Barbiturates Screen Not Detected (NotDetected); Benzodiazepine Screen Not Detected (NotDetected); Cocaine Metabolite Screen Not Detected (NotDetected); Medtox Control Line Valid? VALID (VALID); Medtox Reader # READER 4; Methadone Not Detected (NotDetected); Methamphetamine Not Detected (NotDetected); Opiate Screen Not Detected (NotDetected); Oxycodone Screen Not Detected (NotDetected); Phencyclidine (PCP) Not Detected (NotDetected); THC/Cannabinoid Screen Not Detected (NotDetected); Tricyclic Screen Not Detected (NotDetected)
[2020-09-21 22:26] LABS: ALT (SGPT) 50 U/L (8-55); AST (SGOT) 77 U/L (5-34); Albumin 3.5 g/dL (3.5-5.0); Alkaline Phosphatase 248 U/L (40-110); Anion Gap 16 mmol/L (10-20); BUN (Urea Nitrogen) 4 mg/dL (8.9-20.6); Calc. Creatinine Clearance 0 mL/min (70-130); Calcium 8.4 mg/dL (7.8-10.44); Carbon Dioxide 25 mmol/L (22-29); Chloride 105 mmol/L (98-107); Globulin 3.8 g/dL (2.4-3.5); Glucose 245 mg/dL (70-105); Potassium 3.4 mmol/L (3.5-5.1); Protein, Total 7.3 g/dL (6.0-8.3); Sodium 143 mmol/L (136-145)
[2020-09-21 22:27] LABS: Acetaminophen Less than 6.0 mcg/mL (10.0-30.0); Alcohol 348 mg/dL (Less than 10); Salicylate Less than 8.0 mg/dL (15.0-30.0)
[2020-09-21 22:29] LABS: #Basophils 0.1 thou/uL (0.0-0.2); #Eosinphils 0.2 thou/uL (0.0-0.7); #Lymphocytes 1.2 thou/uL (1.20-3.40); #Monocytes 0.4 thou/uL (0.11-0.59); #Neutrophils 1.5 thou/uL (1.40-6.50); %Basophils 2.5 % (0.0-1.0); %Eosinophils 7.4 % (0.0-10.0); %Monocytes 11.4 % (0.0-10.0); %Neutrophils 44.7 % (42.0-75.0); Hemoglobin 14.6 g/dL (14.0-18.0); MDiff Complete? YES; Macrocytosis SLIGHT = 6-15 cells (100X) (0-5/hpf); Mean Corpuscular HGB CONC 34.8 g/dL (32.0-36.0); Mean Corpuscular Hemoglobin 36.4 pg (27.0-31.0); Mean Platelet Volume 7.5 fL (7.4-10.4); Platelet Count 69 thou/uL (130-400); Platelet Morphology Comment Appears Decreased; RBC Distribution Width 12.4 % (11.5-14.5); White Blood Cell (WBC) Count 3.4 thou/uL (4.8-10.8)
--- NOTE | 2020-09-21 22:37 | CT ---
CT OF BRAIN PERFORMED WITHOUT CONTRAST ENHANCEMENT: Date: 09/21/2020 HISTORY: Altered mental status. COMPARISON: 05/09/2017 study. FINDINGS: There is mild ventricular and sulcal prominence for age. There are no signs of intracerebral hemorrha ge or extra-axial fluid collections. The mastoid air cells are clear. There is some mucosal change wi thin the visualized portion of the left maxillary sinus. IMPRESSION: No acute intracranial abnormalities. POS: OFF
--- NOTE | 2020-09-21 22:43 | CT ---
CT OF CHEST AND ABDOMEN AND PELVIS AND THORACIC SPINE AND LUMBAR SPINE PERFORMED WITH IV CONTRAST EN TRACEY: Date: 09/21/2020 HISTORY: Fall. Diffuse pain. FINDINGS: CT CHEST: Lungs are clear of any infiltrative process. No pleural effusions are identified. No rib fractures. T horacic aorta is normal in caliber. No mediastinal hematoma. CT ABDOMEN: CT of abdomen was performed with contrast enhancement. There are fatty changes of the liver, which do es not appear enlarged. The spleen is within normal limits, it is slightly prominent measuring 13.0 c m in length, more related to elongation to the spleen. Pancreas region is unremarkable. Gallbladder i s contracted. There are some small gallstones noted. Right and left adrenal glands, and right and left kidneys are normal in size. No free fluid seen with in the abdomen. No significant periaortic or mesenteric adenopathy. CT PELVIS: CT of pelvis was performed with contrast enhancement. No evidence of adenopathy, mass, or free fluid. Pelvic ring is intact without evidence of fracture. No evidence of hip fracture. CT THORACIC SPINE: Marked arthritic changes noted. No acute injury. CT LUMBAR SPINE: Arthritic change without acute injury. IMPRESSION: 1. No evidence of acute injury. 2. Fatty change of the liver. 3. Gallstones. POS: OFF
== END 2020-09-22 00:26 | disposition home or self-care (01) ==
LOC: ERS 21:05
DX: F10.129 Alcohol abuse with intoxication, unspecified (principal); E11.9 Type 2 diabetes mellitus without complications; Y90.8 Blood alcohol level of 240 mg/100 ml or more
CPT/HCPCS: 36415; 70450; 71260; 74177; 80053; 80306; 80307; 81003; 85025; Q9967

== ENCOUNTER 2024-08-28 05:55 | Emergency (ER) | payer MEDICAID, OTHER ==
[2024-08-28] MEDS ORDERED: Lidocaine 1% w/Epinephrine 1:100K 20 ML VIAL ONE (06:07)
[2024-08-28] MEDS ORDERED: Bacitracin 1 PK ONE (06:07)
== END 2024-08-28 10:23 | disposition home or self-care (01) ==
LOC: ERS 05:55
DX: S01.112A Laceration without foreign body of left eyelid and periocular area, initial encounter (principal); S01.21XA Laceration without foreign body of nose, initial encounter; K70.30 Alcoholic cirrhosis of liver without ascites; E11.9 Type 2 diabetes mellitus without complications; Z51.5 Encounter for palliative care; W19.XXXA Unspecified fall, initial encounter
CPT/HCPCS: 70450; 72125; 96372; G0390